=== PATIENT | female | born 1970 | race Caucasian/White ===

== ENCOUNTER → 2016-10-16 | Outpatient (CLI) | payer OTHER ==
--- NOTE | 2016-10-16 17:02 | MA ---
Screening Digital Mammogram With iCAD Analysis Clinical Indications: Routine screening. Technique: Standard cephalocaudal and mediolateral oblique projections are obtained. The examination is processed by the iCAD computer-aided detection system. Comparison: September 2015, January 2014, December 2013, May 2012, March 2010, February 2010. Breast density: Type C; Heterogeneously dense. Findings: CAD was reviewed. There are no masses, suspicious calcifications or other signs of malignan cy. There has been no significant change in the appearance of either breast. Impression: Negative mammogram. BI-RADS 1. Recommendation: Routine screening in one year, as long as physical examination is benign, in this pat ient with heterogeneously dense breast parenchyma. [facility]–1983 will send a result letter to the patient. Dense breast parenchyma diminishes mammographic sensitivity. Negative mammography should not preclude additional workup of a clinically suspicious finding. The patient's information is entered into a reminder system with a target due date for her next mammo gram.
== END ==
LOC: BRMIMAGING 14:37
DX: Z12.31 Encounter for screening mammogram for malignant neoplasm of breast (principal)
CPT/HCPCS: G0202

== ENCOUNTER → 2017-12-18 | Outpatient (CLI) | payer OTHER | LOC: BRMIMAGING 14:18 | PROVIDERS: ATTEND Obstetrics & Gynecology | DX: Z12.31 Encounter for screening mammogram for malignant neoplasm of breast (principal) ==

== ENCOUNTER → 2018-12-24 | Outpatient (CLI) | payer OTHER | LOC: BRMIMAGING 15:05 | PROVIDERS: ATTEND Family Medicine | DX: Z12.31 Encounter for screening mammogram for malignant neoplasm of breast (principal) ==